=== PATIENT | female | born 1975 | race Caucasian/White ===

== ENCOUNTER 2024-08-22 16:54 | Emergency (ER) | payer OTHER ==
[~2024-08-22] VITALS: Ht 170.2 cm; Wt 112.9 kg
[2024-08-22 17:39] VITALS: TEMP 97.8
[2024-08-22 17:44] LABS: EOSINOPHILS % (AUTO) 0.6 % (1.0-6.0); HEMATOCRIT 40.1 % (36-46); HEMOGLOBIN 12.8 g/dL (12.0-16.0); LYMPHOCYTES # (AUTO) 2.5 K/uL (1.0-4.8); LYMPHOCYTES % (AUTO) 17.6 % (22.0-44.0); MEAN CORPUSCULAR HEMOGLOBIN 27.2 pg (26.0-34.0); MEAN CORPUSCULAR HGB CONC 31.8 G/dL (31.0-37.0); MEAN CORPUSCULAR VOLUME 85 fL (80-100); MONOCYTES # (AUTO) 0.8 K/uL (0.1-1.0); MONOCYTES % (AUTO) 5.6 % (2.0-9.0); NEUTROPHILS # (AUTO) 10.8 K/uL (1.8-7.7); NEUTROPHILS % (AUTO) 75.2 % (40.0-70.0); PLATELET COUNT (AUTO) 364 K/uL (150-450); RED CELL DISTRIBUTION WIDTH 15.1 % (11.5-14.5); WHITE BLOOD COUNT (AUTO) 14.3 K/uL (4.5-11.0)
[2024-08-22 17:53] LABS: ANION GAP 10 mmol/L (8-16); CALCIUM, TOTAL 10.1 mg/dL (8.8-10.5); CARBON DIOXIDE 27 mmol/L (22-29); CHLORIDE 98 mmol/L (98-107); CREATININE 0.88 mg/dL (0.60-1.30); GLOMERULAR FILTR. RATE CALC > 60 mL/min (>60); GLUCOSE,RANDOM 172 mg/dL (70-110); POTASSIUM 3.4 mmol/L (3.5-5.1); SODIUM SERUM 135 mmol/L (136-145); UREA NITROGEN, BLOOD 11 mg/dL (7-18)
[2024-08-22 18:01] LABS: ALCOHOL, BLOOD (SERUM) < 3 mg/dL (0-10)
[2024-08-22 18:17] LABS: COVID AG,FIA SOURCE NASAL SWAB
[2024-08-22 18:22] LABS: PH,URINE DRUG SCREEN 6.5 (5.0-8.0)
[2024-08-22 18:30] LABS: AMPHET/METH SCREEN,URINE NEGATIVE (NEGATIVE); BARBITURATE SCREEN, URINE NEGATIVE (NEGATIVE); BENZODIAZEPINES SCREEN,URINE NEGATIVE (NEGATIVE); CANNABINOID SCREEN,URINE POSITIVE (NEGATIVE); COCAINE SCREEN,URINE NEGATIVE (NEGATIVE); METHADONE SCREEN, URINE NEGATIVE (NEGATIVE); OPIATE SCREEN,URINE NEGATIVE (NEGATIVE); PHENCYCLIDINE SCREEN,URINE NEGATIVE (NEGATIVE)
[2024-08-22 18:32] LABS: ALCOHOL, URINE DRUG SCREEN NEGATIVE (NEGATIVE)
[2024-08-22 18:40] LABS: SARS-COV2 (COVID) ANTIGEN,FIA Negative (Negative)
[2024-08-22] MEDS: OLANZapine 5 MG TABLET PO ONE (21:14)
[2024-08-22] MEDS: LORazepam 2 MG TABLET PO ONE (21:14)
[2024-08-23 08:15] VITALS: BP 144/61; PULSE 81; RESP 20; O2SAT 99
== END 2024-08-23 08:21 | disposition admitted as inpatient to this hospital (09) ==
LOC: EMS 16:54
DX: F20.9 Schizophrenia, unspecified (principal); E11.9 Type 2 diabetes mellitus without complications; I10 Essential (primary) hypertension; F12.90 Cannabis use, unspecified, uncomplicated; Z20.822 Contact with and (suspected) exposure to COVID-19
CPT/HCPCS: 99285; 87426; 80048; 85025; 36415; 93005; 80307; 84703; G0480